=== PATIENT | female | born 1990 | race Caucasian/White ===

== ENCOUNTER 2021-11-08 11:49 | Emergency (ER) | payer MEDICAID, OTHER ==
[~2021-11-08] VITALS: Ht 160 cm; Wt 95.0 kg
[2021-11-08 12:01] VITALS: BP 157/95
[2021-11-08] MEDS ORDERED: CETI10TA17 PO (12:05)
--- NOTE | 2021-11-08 12:05 | ED General ---
General Stated Complaint: FACIAL SWELLING; RASH Source of Information: Patient Exam Limitations: No Limitations History of Present Illness Date Seen by Provider: Nov 08, 2021 Time Seen by Provider: 11:51 Initial Comments 31yoF with no pertinent PMH coming in due to concern for an allergic reaction. She noticed 2 days ago she started to have some swelling around her eyes and some rash with redness around her left arm. This has been persistent, unchanging, nothing seems to make it better or worse. She has been taking ibuprofen to see if that would help. She does not take any medicines at all daily and the only medicine she is had in the past week was ibuprofen. Has not had any new foods, did start using a new soap, and recently was around fireworks and smoke on 06 November when this started. She is also been around a new cat. She is not had any allergies prior. Denies any shortness of breath, vomiting, chest pain, abdominal pain, weakness, numbness, headache, difficulty swallowing, d ifficulty speaking, or any other concerns LMP was 2 days ago Allergies and Home Medications Allergies Coded Allergies: No Known Drug Allergies (Unverified , 11/08/21) Patient Home Medication List Home Medication List Reviewed: Yes Review of Systems Review of Systems Constitutional: No fever EENTM: No blurred vision Respiratory: No cough, No short of breath Cardiovascular: No chest pain Gastrointestinal: No abdominal pain, No nausea, No vomiting Genitourinary: no symptoms reported Musculoskeletal: no symptoms reported Skin: rash Psychiatric/Neurological: No Symptoms Reported Hematologic/Lymphatic: No Symptoms Reported Immunological/Allergic: no symptoms reported All Other Systems Reviewed Negative Unless Noted: Yes Past Ozvkbyr-Arnajv-Lozxlh Hx Patient Social History Tobacco Use?: No Past Medical History Surgeries: No Physical Exam Vital Signs Capillary Refill : Height, Weight, BMI Height: '" Weight: lbs. oz. kg; BMI Method: General Appearance: No Apparent Distress, WD/WN Eyes: Bilateral Eye Other (Minimal bilateral periorbital edema with no proptosis, no pain with extraocular movements, normal visual acuity) HEENT: PERRL/EOMI, Normal ENT Inspection, Pharynx Normal Neck: Full Range of Motion, Normal Inspection, Non Tender, Supple Respiratory: Chest Non Tender, Lungs Clear, Normal Breath Sounds, No Accessory Muscle Use, No Respiratory Distress Cardiovascular: Regular Rate, Rhythm, No Edema, Normal Peripheral Pulses Gastrointestinal: Normal Bowel Sounds, Non Tender, Soft; No Distended, No Guarding Back: Normal Inspection Extremity: Normal Capillary Refill, Normal Range of Motion, Non Tender, No Calf Tenderness, No Pedal Edema Neurologic/Psychiatric: Alert, No Motor/Sensory Deficits, Normal Mood/Affect Skin: Warm/Dry, Other (Blanching macular rash to the left upper extremity, chest, Nikolsky negative) Lymphatic: No Adenopathy Progress/Results/Core Measures Suspected Sepsis SIRS Temperature: Pulse: Respiratory Rate: Blood Pressure / Mean: Results/Orders Vital Signs/I&O Capillary Refill : Progress Note : Progress Note 31-year-old female with above history coming in due to periorbital edema which is minimal with blanching macular rash which appears similar to urticaria on her chest and left upper extremity. She has no signs of anaphylaxis clinically. Vitals are within normal limits. We will give her symptomatic management including steroids, Pepcid, Benadryl. Given she is well-appearing, this has been happening over the past 2 days, I do not believe this will progress rapidly. I will have her follow-up as an outpatient with her regular doctor and try to avoid any of the new allergens that have been introduced into her life in the past week. Departure Impression Primary Impression: Allergic reaction Qualified Codes: T78.40XA - Allergy, unspecified, initial encounter Disposition: 01 HOME, SELF-CARE Condition: Stable Departure-Patient Inst. Decision time for Depature: 12:04 Referrals: NO,LOCAL PHYSICIAN (PCP/Family) Primary Care Physician Patient Instructions: Allergic Reaction ED Add. Discharge Instructions: You will begin taking cetirizine daily which you can start tonight. If you begin feeling severely short of breath, vomiting that will not stop, feeling like your throat is tightening and you cannot speak or swallow, but I want you to come back to the ER. Otherwise if your symptoms continue as they are I want you to follow-up with your regular doctor early next week. Try to avoid any of the new allergens that have been introduced in your life in the past couple weeks including the cats, new soaps, or any new foods Scripts Cetirizine HCl (Cetirizine HCl) 10 Mg Tablet 10 MG PO DAILY for 30 Days, #30 TAB Prov: TOMAS NOVA MD 7/6/22 Work/School Note: Work Release Form Date Seen in the Emergency Department: Nov 08, 2021 Return to Work: Nov 09, 2021 Restrictions: No Restrictions TOMAS NOVA MD Nov 08, 2021 12:05
[2021-11-08] MEDS ORDERED: FAMOTIDINE 20 MG (PEPCID) TABLET PO ONE (12:15)
[2021-11-08] MEDS ORDERED: diphenhydrAMINE 25 MG TAB (BENADRYL) PO ONE (12:15)
== END 2021-11-08 12:20 | disposition home or self-care (01) ==
LOC: ER FS 11:51
DX: T78.40XA Allergy, unspecified, initial encounter (principal); H02.843 Edema of right eye, unspecified eyelid; H02.846 Edema of left eye, unspecified eyelid; Z28.310 Unvaccinated for COVID-19
CPT/HCPCS: 99283

== ENCOUNTER → 2023-03-08 | Outpatient (CLI) | payer SELFPAY ==
[~2023-03-08] MED LIST: CETI10TA17 PO
[2023-03-08 14:08] LABS: ABSOLUTE RETIC # 92 10e9/uL (24-90); BASOPHILS % (AUTO) 0 % (0-10); EOSINOPHILS # (AUTO) 0.1 10^3/uL (0.0-0.3); EOSINOPHILS % (AUTO) 1 % (0-10); HEMATOCRIT 48 % (35-52); HEMOGLOBIN 15.9 g/dL (11.5-16.0); LYMPHOCYTES # (AUTO) 3.8 10^3/uL (1.0-4.0); LYMPHOCYTES % (AUTO) 33 % (12-44); MEAN CORPUSCULAR HEMOGLOBIN 33 pg (25-34); MEAN CORPUSCULAR HGB CONC 33 g/dL (32-36); MEAN CORPUSCULAR VOLUME 100 fL (80-99); MONOCYTES # (AUTO) 0.9 10^3/uL (0.0-1.0); MONOCYTES % (AUTO) 8 % (0-12); NEUTROPHILS # (AUTO) 6.5 10^3/uL (1.8-7.8); NEUTROPHILS % (AUTO) 57 % (42-75); PLATELET COUNT 212 10^3/uL (130-400); RETICULOCYTE % 1.93 % (0.50-2.40); WHITE BLOOD COUNT 11.4 10^3/uL (4.3-11.0)
[2023-03-08 14:27] LABS: EOSINOPHILS % (MANUAL) 1 %; LYMPHOCYTES % (MANUAL) 33 %; MONOCYTES % (MANUAL) 9 %; NEUTROPHILS % (MANUAL) 53 %; REACTIVE LYMPHOCYTES 4 %
== END ==
LOC: LABNPT 08:00
PROVIDERS: ATTEND Registered Nurse Emergency
DX: D75.0 Familial erythrocytosis (principal)
CPT/HCPCS: 85007; 85027; 85045; 85055